=== PATIENT | female | born 1980 | race Caucasian/White ===

== ENCOUNTER 2021-06-13 23:13 | Emergency (ER) | payer SELFPAY ==
[2021-06-13 23:20] VITALS: BP 134/75; PULSE 77; RESP 20; TEMP 37.3; O2SAT 100
--- NOTE | 2021-06-13 23:43 | ED_ITS ---
HPI - General Adult General Chief complaint: Upper Respiratory Symptoms Stated complaint: throat pain/swollen, feeling light headed Time Seen by Provider: 06/13/21 23:19 Source: patient Mode of arrival: Ambulatory History of Present Illness HPI narrative: 41-year-old female here for evaluation of left-sided throat pain, swelling and some lightheadedness. She states the symptoms started immediately after she had a left hip MRI done 2 days ago. No problems swallowing. Occasionally some breathing issues. Has not tried anything for the symptoms. No dental pain. Contact her primary doctor told her to come to the emergency department for evaluation. Related Data Allergies Allergy/AdvReac Type Severity Reaction Status Date / Time cephalexin [From Keflex] Allergy Verified 06/14/21 00:07 Review of Systems Constitutional Constitutional: Reports as per HPI and Reports system reviewed and no additional complaints, except as documented ENT Ears, Nose, Mouth, and Throat: Reports system reviewed and no additional complaints, except as documented and Reports as per HPI Cardiovascular Cardiovascular: Reports as per HPI and Reports system reviewed and no additional complaints, except as documented Respiratory Respiratory: Reports as per HPI and Reports system reviewed and no additional complaints, except as documented Integumentary/Breasts Skin/Breast: Reports system reviewed and no additional complaints, except as documented Neurologic Neurologic: Reports system reviewed and no additional complaints, except as documented Hematologic/Lymphatic On Anticoagulants: No Patient History Medical History Healthy adult Social History lives independently: Yes Exam Initial Vital Signs Initial Vital Signs: Vital Signs Temperature 99.1 F 06/13/21 23:20 Pulse Rate 77 06/13/21 23:20 Respiratory Rate 20 06/13/21 23:20 Blood Pressure 134/75 06/13/21 23:20 Pulse Oximetry 100 06/13/21 23:20 HENMT Head: normal to inspection and normocephalic Ears: hearing grossly normal bilaterally, TM's normal bilaterally and EAC's normal Nose: external nose normal Face and sinus: normal facial exam Mouth: oral mucosae normal, tongue normal and mucous membranes abnormal Neck Lymphatic: lymphadenopathy Resp Effort & Inspection: normal respiratory effort Auscultation: clear to auscultation bilaterally Cardio Rate: regular rate Rhythm: regular rhythm Skin General: no rashes or lesions noted Extrem General: normal to inspection and capillary refill normal Psych Appearance: grossly normal and well kempt Course Orders Ordered: Discontinued Medications Dexamethasone (Dexamethasone 4 Mg Tablet) 12 mg PO NOW ONE Stop: 06/13/21 23:44 Last Admin: 06/13/21 23:49 Dose: 12 mg Documented by: CEZAR Vital Signs Vital signs: Vital Signs - 8 hr 06/13/21 23:20 Temperature 99.1 F Pulse Rate 77 Respiratory Rate 20 Blood Pressure 134/75 Pulse Oximetry 100 Medical Decision Making Lab Data Lab results reviewed: Yes I reviewed the patient's lab results. Labs: Point of Care Testing Rapid Strep A Negative Point of care testing: Point of Care Testing Rapid Strep A Negative MDM Narrative Medical decision making narrative: No respiratory distress. Does have 1 anterior cervical lymph node unsure if this is the cause of patient's symptoms very well could be. Rapid strep was negative. No indication for antibiotics. I have low suspicion that this is an allergic reaction from the MRI. I did disc uss this with her. No signs of anaphylaxis. She was given return precautions and follow-up instructions. She expressed understanding and agreement. Discharge Plan Departure Patient Disposition: Home Clinical Impression: Lymphadenopathy, cervical Activity Restrictions/Additional Instructions: There was 1 enlarged lymph node on the left side of your neck. There is no indication for any antibiotics. You can use Tylenol/ibuprofen for any discomfort. Contact your primary provider for a follow-up. Return to the emergency department for any new or worsening symptoms.
[2021-06-13] MEDS: dexAMETHasone 4 MG TABLET 12 MG PO (23:49)
== END 2021-06-14 00:08 | disposition home or self-care (01) ==
PROVIDERS: Emergency Provider Emergency Medicine
DX: R59.1 Generalized enlarged lymph nodes (principal); R42 Dizziness and giddiness
CPT/HCPCS: 87880; 99283

== ENCOUNTER 2023-03-02 20:27 | Emergency (ER) | payer OTHER, MEDICAID, SELFPAY ==
[2023-03-02 20:33] VITALS: BP 129/87; PULSE 90; RESP 16; TEMP 37.4; O2SAT 98; BMI 25.0
[2023-03-02] MEDS: ONDANSETRON 4 MG ODT SL (22:10)
--- NOTE | 2023-03-02 22:52 | ED.GENADULT ---
HPI - General Adult General Chief complaint: Dental/Oral Stated complaint: Tooth infection Time Seen by Provider: 03/02/23 22:24 Source: patient Mode of arrival: Family Vehicle History of Present Illness HPI narrative: 42-year-old woman with no significant medical issues presents with 3 days of nausea, vomiting diarrhea, headache and left-sided dental pain upper molar. She complains of being dizzy, hot and cold and worsening dizziness when she stands up. She had an episode of emesis in the emergency department. Has not had any diarrhea. Tried some aspirin to help with the headache but no other medications. She is not describing cough, palpitations, shortness of breath. She does note hot and cold sensation. Related Data Previous Rx's Medication Instructions Recorded amoxicillin 500 mg capsule 500 mg PO TID #15 caps 03/03/23 Allergies Allergy/AdvReac Type Severity Reaction Status Date / Time cephalexin [From Keflex] Allergy Verified 03/02/23 20:38 Review of Systems Review of Systems Narrative: Pertinent positive and negative findings as per HPI Patient History Medical History Healthy adult Social History lives independently: Yes Smoking Status: Never smoker Smoking Status: Never smoker alcohol intake frequency: 0-2 drinks per day Substance Use Type: marijuana Exam Initial Vital Signs Initial Vital Signs: Vital Signs Temperature 99.4 F 03/02/23 20:33 Pulse Rate 90 03/02/23 20:33 Respiratory Rate 16 03/02/23 20:33 Blood Pressure 129/87 03/02/23 20:33 Pulse Oximetry 98 03/02/23 20:33 Oxygen Delivery Method Room Air 03/02/23 20:33 General: Frail appearing, appears to feel unwell but Able to give a complete and coherent history. Well-nourished well-developed HEENT: Moist mucous membranes, normal sclera with reactive pupils, gingival inflammation and poor dentition but no obvious abscesses. No reproducible pain with palpation over her christianity Neck: No cervical adenopathy, supple, no nuchal rigidity Respiratory: Lungs are clear to auscultation, no wheezing no rales no rhonchi. Full and symmetrical air movement Cardiac: Regular rate and rhythm no murmurs no bruits. Heart rate is 90 while she is sitting and increases to 124 standing with a sensation of dizziness Abdomen: Soft, nontender, good bowel tones, no flank pain Skin: Quite warm and mildly diaphoretic, no rashes Neurologic: Grossly neurologically intact with no obvious asymmetries or abnormalities Extremities: No trauma, well perfused Psych: Cooperative, appropriate insight and affect Course Orders Ordered: ED Orders 03/02/23 23:07 Complete Blood Count AUTO DIFF Stat Comprehensive Metabolic Panel Stat Lactate (Lactic Acid) Stat 03/02/23 23:20 Blood Culture Stat Discontinued Medications Amoxicillin (Amoxicillin 250 Mg Capsule) 500 mg PO NOW ONE Stop: 03/02/23 22:52 Last Admin: 03/02/23 23:13 Dose: 500 mg Documented By: FAROOQ Sodium Chloride (Normal Saline 0.9%) 1,000 mls @ 1,000 mls/hr IV BOLUS ONE Stop: 03/02/23 23:50 Last Infusion: 03/03/23 00:33 Dose: 0 mls/hr Documented By: Admin: 03/02/23 23:12 Dose: 1,000 mls/hr Documented By: FAROOQ Ketorolac Tromethamine (Ketorolac 30 Mg/Ml Vial) 15 mg IV NOW ONE Stop: 03/02/23 22:52 Last Admin: 03/02/23 23:13 Dose: 15 mg Documented By: FAROOQ Metoclopramide HCl (Metoclopramide 10 Mg/2 Ml Inj) 10 mg IV NOW ONE Stop: 03/02/23 22:52 Last Admin: 03/02/23 23:13 Dose: 10 mg Documented By: FAROOQ Ondansetron HCl (Ondansetron 4 Mg Odt) 4 mg SL NOW ONE Stop: 03/02/23 22:09 Last Admin: 03/02/23 22:10 Dose: 4 mg Documented By: FAROOQ Vital Signs Vital signs: Vital Signs - 8 hr 03/02/23 20:33 03/02/23 22:59 03/02/23 22:59 Temperature 99.4 F Pulse Rate 90 82 Respiratory Rate 16 Blood Pressure 129/87 117/73 Pulse Oximetry 98 98 Oxygen Delivery Method Room Air 03/02/23 23:00 03/02/23 23:00 03/02/23 23:30 Temperature Pulse Rate 78 Respiratory Rate Blood Pressure 111/75 113/75 Pulse Oximetry 97 Oxygen Delivery Method 03/02/23 23:30 03/03/23 00:00 03/03/23 00:00 Temperature Pulse Rate 86 71 Respiratory Rate Blood Pressure 95/56 L Pulse Oximetry 95 97 Oxygen Delivery Method Medical Decision Making Lab Data 03/02/23 23:07 03/02/23 23:07 Labs: Lab Results 03/02/23 03/02/23 03/02/23 Range/Units 23:07 23:07 23:07 WBC 10.3 (4.5-11.0) X10^3/uL RBC 4.98 (4.0-5.2) X10^6/uL Hgb 12.3 (12.0-16.0) g/dL Hct 37.1 (36-46) % MCV 74.5 L (80-100) fL MCH 24.8 L (26-34) PG MCHC 33.3 (30-36) % RDW 17.8 H (11.6-14.8) % Plt Count 237 (150-400) X10^3/uL Neut % (Auto) 75.6 H (50-75) % Lymph % (Auto) 17.6 L (25-40) % [place] % (Auto) 6.4 (3-14) % Eos % (Auto) 0.0 L (2-4) % Baso % (Auto) 0.4 (0-2) % Neut # (Auto) 7800 H (1231-2295) /uL Lymph # (Auto) 1800 (0241-2242) /uL [place] # (Auto) 700 (0-900) /uL Eos # (Auto) 0 (0-450) /uL Baso # (Auto) 0 (0-100) /uL Sodium 136 L (137-145) mmol/L Potassium 3.8 (3.4-5.1) mmol/L Chloride 102 (98-107) mmol/L Carbon Dioxide 27 (22-32) mmol/L BUN 10 (7-17) mg/dL Creatinine 0.67 (0.52-1.04) mg/dL Estimated GFR > 60 (>60) mL/min BUN/Creatinine Ratio 14.9 (6-22) Glucose 106 H (70-100) mg/dL Lactate 0.8 (0.7-2.1) mmol/L Calcium 9.1 (8.4-10.2) mg/dL Total Bilirubin 0.6 (0.2-1.3) mg/dL AST 23 (14-36) IU/L ALT 18 (<35) IU/L Alkaline Phosphatase 52 (38-126) U/L Total Protein 8.1 (6.3-8.2) g/dL Albumin 4.5 (3.5-5.0) g/dL Globulin 3.6 (1.7-4.1) g/dL Albumin/Globulin Ratio 1.3 (1.0-2.8) MDM Narrative Medical decision making narrative: CC: Nausea vomiting headache for 3 days. Acute problem uncertain prognosis Data collected from: patient, Differential considered: Viral syndrome, migraine headache, dehydration, dental abscess, meningitis remains within the differential but she does not have nuchal rigidity and is not complaining of any photophobia Exam documented above, pertinent findings include: General malaise, flushed mildly diaphoretic dental pain left upper 1st molar without obvious abscess Lab Test results independently reviewed as above. Pertinent findings: CBC is unremarkable Metabolic panel has no dramatic abnormalities Lactic acid is unremarkable Treatments: 1 L of fluid, Toradol, oral amoxicillin, IV Reglan and ODT Zofran all have led to the patient feeling significantly better Re-evaluations: 1:10 am significant improvement. Orthostasis has resolved. Nausea has resolved she is ready for discharge Discussion: 42-year-old woman who presents with nausea vomiting diarrhea and dental pain. Lab work is reassuring. Significant improvement after fluids. Orthostasis has resolved. We will send her home with prescription for 5 days of amoxicillin for her dental infection and Zofran to prevent any additional nausea. There is no evidence of sepsis, developing facial abscess or meningitis. No reason for hospital admission or additional imaging at this time. Questions are answered and she is safe for discharge Discharge Plan Departure Patient Disposition: Home Clinical Impression: Toothache, Acute dehydration Nausea & vomiting Qualifiers: Vomiting type: unspecified Qualified Code(s): R11.2 - Nausea with vomiting, unspecified Instructions: DI for Nausea -- Adult, DI for Dental Pain Activity Restrictions/Additional Instructions: Thank you for coming in today You are significantly dehydrated and responded nicely to fluids and nausea medication. You do have a dental infection and I am going to give you 5 additional days of amoxicillin. I suspect that the nausea and vomiting is actually viral related. I am also going to send you home with a couple more tablets of Zofran to help with nausea should return. You will need follow-up with a dentist regarding the dental pain. If you find that you are getting worse or develop any new symptoms, please feel free to return to the emergency department for further evaluation. Prescriptions: New amoxicillin 500 mg capsule 500 mg PO TID Qty: 15 0RF Referrals: Miryam Qureshi MD [Primary Care Provider] - Stand Alone Forms: Patient Portal/API
[2023-03-02 22:59] VITALS: BP 117/73; PULSE 82; O2SAT 98
[2023-03-02 23:00] VITALS: BP 111/75; PULSE 78; O2SAT 97
[2023-03-02] MEDS: SODIUM CHLORIDE 0.9% 1,000 ML 1000 ML IV (23:12)
[2023-03-02] MEDS: METOCLOPRAMIDE 10 MG/2 ML INJ IV (23:13)
[2023-03-02] MEDS: KETOROLAC 30 MG/ML VIAL 15 MG IV (23:13)
[2023-03-02] MEDS: AMOXICILLIN 250 MG CAPSULE 500 MG PO (23:13)
[2023-03-02 23:19] LABS: Add Manual Diff / Slide Review NO; Basophils Absolute Auto 0 /uL (0-100); Basophils Percent Auto 0.4 % (0-2); Eosinophils Absolute Auto 0 /uL (0-450); Hematocrit 37.1 % (36-46); Hemoglobin 12.3 g/dL (12.0-16.0); Lymphocytes Absolute Auto 1800 /uL (1100-4500); Lymphocytes Percent Auto 17.6 % (25-40); Mean Corpuscular HGB Conc 33.3 % (30-36); Mean Corpuscular Hemoglobin 24.8 PG (26-34); Mean Corpuscular Volume 74.5 fL (80-100); Monocytes Absolute Auto 700 /uL (0-900); Monocytes Percent Auto 6.4 % (3-14); Neutrophils Absolute Auto 7800 /uL (1500-7000); Neutrophils Percent Auto 75.6 % (50-75); Platelet Count 237 X10^3/uL (150-400); Red Blood Cell Count 4.98 X10^6/uL (4.0-5.2); Red Cell Distribution Width 17.8 % (11.6-14.8); White Blood Cell Count 10.3 X10^3/uL (4.5-11.0)
[2023-03-02 23:29] LABS: Lactate (Lactic Acid) 0.8 mmol/L (0.7-2.1)
[2023-03-02 23:30] VITALS: BP 113/75; PULSE 86; O2SAT 95
[2023-03-02 23:31] LABS: Alanine Aminotransferase 18 IU/L (<35); Albumin 4.5 g/dL (3.5-5.0); Albumin Globulin Ratio 1.3 (1.0-2.8); Alkaline Phosphatase 52 U/L (38-126); Aspartate Aminotransferase 23 IU/L (14-36); BUN Creatinine Ratio 14.9 (6-22); Bilirubin Total 0.6 mg/dL (0.2-1.3); Blood Urea Nitrogen 10 mg/dL (7-17); Calcium 9.1 mg/dL (8.4-10.2); Carbon Dioxide 27 mmol/L (22-32); Chloride 102 mmol/L (98-107); Estimated Glomerular Filt Rate > 60 mL/min (>60); Globulin 3.6 g/dL (1.7-4.1); Glucose 106 mg/dL (70-100); HEMOLYSIS < 15 (0-50); Potassium 3.8 mmol/L (3.4-5.1); Sodium 136 mmol/L (137-145); Total Protein 8.1 g/dL (6.3-8.2)
[2023-03-03] VITALS: BP 95/56; PULSE 71; O2SAT 97
[2023-03-03 00:30] VITALS: BP 105/64; PULSE 96; O2SAT 97
[2023-03-03 01:00] VITALS: BP 108/60; PULSE 83; O2SAT 96
[2023-03-03] MEDS: ONDANSETRON 4 MG ODT PREPACK 1 BOTTLE MISC (01:21)
[2023-03-03 01:26] VITALS: TEMP 36.6
== END 2023-03-03 01:28 | disposition home or self-care (01) ==
PROVIDERS: Emergency Provider Emergency Medicine; PCP Family Medicine
DX: K08.89 Other specified disorders of teeth and supporting structures (principal); E86.0 Dehydration; R11.2 Nausea with vomiting, unspecified
CPT/HCPCS: 36415; 80053; 83605; 85025; 87040; 96361; 96374; 96375; 99284; J1885; J2765